=== PATIENT | female | born 1935 | race Caucasian/White ===

== ENCOUNTER 2018-08-23 10:01 | Inpatient (IN) | payer MEDICARE, OTHER ==
[~2018-08-23] VITALS: Ht 157.5 cm; Wt 65.8 kg
[~2018-08-23 10:01] MED LIST: CEFAZOLIN 1 G VIAL MC ONE; ESMOLOL HCL 100 MG/10 ML VIAL IV ONE; GLYCOPYRROLATE 0.2 MG/ML VIAL MC ONE; IRR NORMAL SALINE IRRIGATION 1,000 ML BOTTLE IR ONE; IV LACTATED RINGERS SOLUTION 1,000 ML BAG IV ONE; LIDOCAINE HCL 2% 20 ML VIAL MC ONE; METOCLOPRAMIDE HCL 10 MG/2 ML VIAL IV ONE; ONDANSETRON 4 MG/2 ML VIAL IV ONE; PROPOFOL 200 MG/20 ML BOTTLE IV ONE; SEVOFLURANE 250 ML BOTTLE IH ONE
[2018-08-23] MEDS ORDERED: CEFAZOLIN 50 ML IV ONE (10:17)
[2018-08-23] MEDS ORDERED: FENTANYL CITRATE 100 MCG/2 ML AMPUL ONE ×2 (13:22→15:37)
[2018-08-23] MEDS ORDERED: ROCURONIUM BROMIDE 50 MG/5 ML VIAL ONE (13:23)
[2018-08-23] MEDS ORDERED: SUCCINYLCHOLINE CHLORIDE 200 MG/10 ML VIAL ONE (13:23)
[2018-08-23] MEDS ORDERED: LIDOCAINE 1%-EPI 1:100,000 20 ML VIAL ONE (13:29)
[2018-08-23] MEDS ORDERED: BUPIVACAINE PF 0.5% 30 ML VIAL ONE (13:30)
[2018-08-23] MEDS ORDERED: BACITRACIN ZINC OINT 15 GM TUBE ONE (14:32)
[2018-08-23 16:23] VITALS: BP 118/48
--- NOTE | 2018-08-23 16:25 | NUR ---
PT RECEIVED FROM RECOVERY ROOM VIA BED IN STABLE CONDITION,VS ARE STABLE.CALL LIGHT WITH IN REACH.ORIENT THE PT TO ROOM
[2018-08-23 16:45] VITALS: BP 117/67
[2018-08-23] MEDS: IV LACTATED RINGERS SOLUTION 1,000 ML IV PRN (16:50)
[2018-08-23 16:59] VITALS: BP 117/66
[2018-08-23] MEDS ORDERED: ONDANSETRON 4 MG/2 ML VIAL IV PRN (17:15)
[2018-08-23] MEDS ORDERED: ACETAMINOPHEN 325 MG TABLET PO PRN (17:15)
[2018-08-23] MEDS ORDERED: Z GUARD REMEDY PASTE 57 GM TUBE TOP PRN (17:15)
[2018-08-23] MEDS ORDERED: INSULIN REGULAR, HUMAN 300 UNIT/3 ML VIAL SQ PRN (17:15)
[2018-08-23] MEDS ORDERED: DEXTROSE 50% 50 ML DISP.SYRIN IV PRN (17:15)
[2018-08-23] MEDS ORDERED: ZOLPIDEM 5 MG TABLET PO PRN (17:15)
[2018-08-23] MEDS ORDERED: INSULIN REGULAR, HUMAN 300 UNITS/3 ML VIAL SQ PRN (17:15)
[2018-08-23] MEDS ORDERED: MAGNESIUM HYDROXIDE 30 ML LIQUID UDC PO PRN (17:15)
[2018-08-23 17:30] VITALS: BP 125/51
[2018-08-23] MEDS: HYDROCODONE/APAP 5-325MG TABLET PO PRN (17:51)
--- NOTE | 2018-08-23 19:00 | NUR ---
RECEIVED PATIENT ALERT ORIENTED SPEAK ARGENTINE, SPOKE TO SON, AND INTERPRETED FOR THE MOTHER. CONT TO MONITOR FOR PAIN. CALL LIGHT WITH REACH.
[2018-08-23 20:00] VITALS: BP 113/69
[2018-08-23] MEDS ORDERED: SITA1TAB6 PO (20:24)
[2018-08-23] MEDS ORDERED: LIDO30AD10 TD (20:25)
[2018-08-23] MEDS ORDERED: NITR0.4T48 SL (20:26)
[2018-08-23] MEDS ORDERED: LOVA20TA2 PO (20:26)
[2018-08-23] MEDS ORDERED: VOLTAREN GEL TOP (20:28)
[2018-08-23] MEDS ORDERED: NAPR220T66 PO (20:29)
[2018-08-23] MEDS ORDERED: METO25TA3 PO (20:29)
[2018-08-23] MEDS ORDERED: ALEN70TA6 PO (20:30)
[2018-08-23] MEDS ORDERED: ASPI81TA31 PO (20:31)
[2018-08-23] MEDS ORDERED: CALC500T51 PO (20:31)
[2018-08-23] MEDS ORDERED: ESOM40CA PO (20:32)
[2018-08-23] MEDS ORDERED: GLIM4TAB3 PO (20:32)
[2018-08-23] MEDS ORDERED: ERGO500040 PO (20:32)
[2018-08-23] MEDS ORDERED: OMEG1CAP PO (20:35)
[2018-08-23] MEDS ORDERED: ATORVASTATIN 20 MG TABLET PO SCH (21:00)
--- NOTE | 2018-08-23 21:00 | NUR ---
CALLED XIAO JIMÉNEZ NP ABOUT THE REQUEST OF SON TO CONTINUE SOME OF HER MOTHER'S MEDICATIONS. XIAO GROSS APPROVED ONLY RAMIPRIL 2.5 MG Q HS, THYROID 25MCG Q AM, ATORVASTATIN 20MG Q HS, ONLY DISCONTUNED OTHER DIABETIC PO MEDS.
[2018-08-23] MEDS ORDERED: RAMIPRIL 2.5 MG CAPSULE PO SCH (21:15)
--- NOTE | 2018-08-23 22:00 | NUR ---
PATIENT ALERT, DENIES PAIN AT THIS TIME. PATIENT REFUSED INSULIN AND HS MEDICATIONS. PATIENT ASSISTED WITH TOILETING, ABDOMEN DRESSING INTACT, CLEAN. WILL CONTINUE TO MONITOR.
[2018-08-23] MEDS: BLOOD SUGAR DIAGNOSTIC 1 EACH STRIP VI SCH (22:14)
[2018-08-24] MEDS: BLOOD SUGAR DIAGNOSTIC 1 EACH STRIP VI SCH ×2 (06:10→11:17)
[2018-08-24 06:17] VITALS: BP 109/47
[2018-08-24] MEDS: IV LACTATED RINGERS SOLUTION 1,000 ML IV PRN (06:31)
[2018-08-24 06:44] LABS: BASOPHILS % (AUTO) 0.2 % (0.0-2.0); EOSINOPHILS # (AUTO) 0.1 K/uL (0.0-0.7); HEMATOCRIT 34.8 % (31.2-41.9); HEMOGLOBIN 11.7 g/dL (10.9-14.3); LYMPHOCYTES # (AUTO) 1.7 K/uL (20.0-40.0); LYMPHOCYTES % (AUTO) 17.3 % (20.5-51.5); MEAN CORPUSCULAR HEMOGLOBIN 29.8 uug (24.7-32.8); MEAN CORPUSCULAR HGB CONC 34 g/dL (32.3-35.6); MEAN CORPUSCULAR VOLUME 88.8 fL (75.5-95.3); MONOCYTES # (AUTO) 0.8 K/uL (2.0-10.0); MONOCYTES % (AUTO) 8.4 % (0.0-11.0); NEUTROPHILS # (AUTO) 7.1 K/uL (1.8-8.9); NEUTROPHILS % (AUTO) 73.1 % (38.5-71.5); PLATELET COUNT (AUTO) 223 K/uL (179-408); RED BLOOD CELL COUNT(AUTO) 3.92 MIL/uL (3.63-4.92); WHITE BLOOD COUNT (AUTO) 9.8 K/uL (3.8-11.8)
[2018-08-24 06:56] LABS: CARBON DIOXIDE 27 mmol/L (21-32); CHLORIDE 104 mmol/L (98-107); CREATININE 0.7 mg/dL (0.6-1.3); GLUCOSE 178 mg/dL (74-106); MAGNESIUM 1.7 mg/dL (1.8-2.4); PHOSPHOROUS 2.5 mg/dL (2.5-4.9); POTASSIUM 3.7 mmol/L (3.5-5.1); UREA NITROGEN, BLOOD 7 mg/dL (7-18)
[2018-08-24] MEDS ORDERED: LEVOTHYROXINE SODIUM 25 MCG TABLET PO SCH (07:00)
[2018-08-24] MEDS ORDERED: PANTOPRAZOLE SODIUM 40 MG TABLET.DR PO SCH (07:00)
--- NOTE | 2018-08-24 07:12 | NUR ---
RECEIVED PATIENT ALERT ORIENTED IN BED AWAKE. CALL LIGHT WITH REACH.VS ARE STABLE .WILL CONTINUE MONITOR
[2018-08-24] MEDS: HYDROCODONE/APAP 5-325MG TABLET PO PRN (09:20)
[2018-08-24 11:40] VITALS: BP 114/56
[2018-08-24] MEDS ORDERED: ATOR20TA PO (12:41)
[2018-08-24] MEDS ORDERED: MAGNESIUM OXIDE 400 MG TABLET PO ONE (12:45)
--- NOTE | 2018-08-24 13:43 | NUR ---
DC ORDERS RECEIVED NOTED AND CARRIED OUT,DC INSTRUCTION AND EDUCATION GIVEN TO THE PT,SHAUN MELENDEZ PER MD ORDERS,PT LEFT THE FACILITY VIA PRIVATE CAR IN STABLE CONDITION
[2018-08-24] MEDS ORDERED: RAMIPRIL 1.25 MG CAPSULE PO SCH (21:00)
== END 2018-08-24 13:30 | disposition home or self-care (01) | DRG 354 ==
LOC: DS 10:01 → MEDSURG3 16:16
PROVIDERS: ADMIT Surgery; ATTEND Student in an Organized Health Care Education/Training Program
PROC: 0WQF0ZZ Repair Abdominal Wall, Open Approach (ICD-10-PCS; principal; 2018-08-23)
DX: K43.2 Incisional hernia without obstruction or gangrene (principal); K43.0 Incisional hernia with obstruction, without gangrene; E11.9 Type 2 diabetes mellitus without complications; E78.5 Hyperlipidemia, unspecified; E03.9 Hypothyroidism, unspecified; Z85.43 Personal history of malignant neoplasm of ovary; Z90.722 Acquired absence of ovaries, bilateral; Z79.84 Long term (current) use of oral hypoglycemic drugs; Z79.82 Long term (current) use of aspirin
CPT/HCPCS: 36415; 83735; 84100; 85025; 86850; 86900; 86901; 93005; 97116; 97530; A4217; A4649; A4663; G0378; J0330; J0690; J1815; J2405; J2765; J3010; J3490; J7030; J7120